=== PATIENT | male | born 1985 | race African-American/Black ===

== ENCOUNTER → 2016-11-16 | Outpatient (CLI) | payer MEDICAID | LOC: M OUTALCOH 08:06 | PROVIDERS: ATTEND Psychiatry & Neurology Psychiatry | DX: F11.20 Opioid dependence, uncomplicated (principal); F14.20 Cocaine dependence, uncomplicated ==

== ENCOUNTER 2016-12-02 09:00 | Outpatient (RCR) | payer SELFPAY | END 2016-12-04 | LOC: M OUTALCOH 09:00 | PROVIDERS: ATTEND Psychiatry & Neurology Psychiatry | DX: F11.20 Opioid dependence, uncomplicated (principal); F14.20 Cocaine dependence, uncomplicated ==

== ENCOUNTER → 2017-02-02 | Outpatient (CLI) | payer MEDICAID, OTHER | LOC: M OUTALCOH 12:05 | PROVIDERS: ATTEND Psychiatry & Neurology Psychiatry | DX: F11.20 Opioid dependence, uncomplicated (principal); F14.20 Cocaine dependence, uncomplicated ==

== ENCOUNTER 2017-04-01 12:49 | Inpatient (IN) | payer OTHER ==
[2017-04-01] MEDS ORDERED: HALOPERIDOL 5 MG/ML VIAL (J1630) As Ordered (13:49)
[2017-04-01] MEDS ORDERED: LORazepam 2 MG/ML VIAL (J2060) As Ordered (13:49)
[2017-04-01] MEDS ORDERED: diphenhydrAMINE INJ 50MG/ML VIAL (J1200) As Ordered (13:49)
[2017-04-01 14:58] LABS: ALBUMIN 4.5 GM/DL (3.2-5.2); ALBUMIN/GLOBULIN RATIO 1.13 (1.00-1.93); ALKALINE PHOSPHATASE 108 U/L (45-117); ALT/SGPT 60 U/L (12-78); ANION GAP 12 MEQ/L (8-16); AST/SGOT 31 U/L (7-37); BILIRUBIN,DIRECT 0.2 MG/DL (0.0-0.2); BILIRUBIN,TOTAL 0.8 MG/DL (0.2-1.0); BLOOD UREA NITROGEN 23 MG/DL (7-18); CALCIUM LEVEL 9.1 MG/DL (8.5-10.1); CARBON DIOXIDE LEVEL 22 MEQ/L (21-32); CHLORIDE LEVEL 105 MEQ/L (98-107); CREATININE FOR GFR 1.59 MG/DL (0.70-1.30); ETHYL ALCOHOL (ETHANOL) < 0.003 % (0.000-0.010); GLOMERULAR FILTRATION RATE > 60.0 (>60); GLUCOSE, FASTING 179 MG/DL (70-100); POTASSIUM SERUM 3.5 MEQ/L (3.5-5.1); SALICYLATE LEVEL < 1.7 MG/DL (5.0-30.0); SODIUM LEVEL 139 MEQ/L (136-145); TOTAL PROTEIN 8.5 GM/DL (6.4-8.2)
[2017-04-01 14:59] LABS: ACETAMINOPHEN LEVEL < 2.0 UG/ML (10.0-30.0)
[2017-04-01 15:18] LABS: HEMATOCRIT 47.9 % (42.0-52.0); HEMOGLOBIN 16.3 g/dl (14.0-18.0); MEAN CORPUSCULAR HEMOGLOBIN 29.8 pg (27.0-33.0); MEAN CORPUSCULAR VOLUME 87.6 fl (80.0-96.0); PLATELET COUNT, AUTOMATED 231 10^3/uL (150-450); RED BLOOD COUNT 5.47 10^6/uL (4.30-6.10); RED CELL DISTRIBUTION WIDTH 13.4 % (11.5-14.5); WHITE BLOOD COUNT 18.6 10^3/uL (4.0-10.0)
[2017-04-01] MEDS: LORazepam 2 MG TAB PO (15:18)
[2017-04-01] MEDS: diphenhydrAMINE 25 MG CAP PO (15:18)
[2017-04-01] MEDS: HALOPERIDOL 5 MG TAB PO (15:18)
[2017-04-01 15:44] LABS: AMPHETAMINES LEVEL URINE NEGATIVE (NEGATIVE); BARBITURATES URINE NEGATIVE (NEGATIVE); BENZODIAZEPINES URINE NEGATIVE (NEGATIVE); CANNABINOIDS URINE NEGATIVE (NEGATIVE); COCAINE METABOLITE URINE NEGATIVE (NEGATIVE); METHADONE URINE NEGATIVE (NEGATIVE); OPIATES URINE NEGATIVE (NEGATIVE); PHENCYCLIDINE URINE NEGATIVE (NEGATIVE)
[2017-04-01 16:12] LABS: KETONE, URINE AUTO RFX NEGATIVE (NEGATIVE); LEUKOCYTE ESTERASE UR AUTO RFX NEGATIVE (NEGATIVE); MUCUS, URINE RFX LARGE (NEGATIVE); NITRITE, URINE AUTO RFX NEGATIVE (NEGATIVE); RBC, URINE AUTO RFX 1 /HPF (0-3); SPECIFIC GRAVITY UR AUTO RFX 1.036 (1.002-1.035); SQUAM EPITHELIAL CELL UR AURFX 1 /HPF (0-6); WBC, URINE AUTO RFX 3 /HPF (0-3)
[2017-04-01 18:26] LABS: BASO # 0.1 10^3/uL (0.0-0.2); BASO % 0.5 % (0.0-1.0); EOS # 0.1 10^3/uL (0.0-0.50); EOS % 0.3 % (0.0-3.0); HEMATOCRIT 45.8 % (42.0-52.0); HEMOGLOBIN 15.5 g/dl (14.0-18.0); IMMATURE GRANULOCYTE # 0.1 10^3/uL (0-0); IMMATURE GRANULOCYTE % 0.3 % (0-0); LYMPH # 2.9 10^3/uL (1.5-6.5); LYMPH % 16.9 % (24.0-44.0); MEAN CORPUSCULAR HEMOGLOBIN 29.4 pg (27.0-33.0); MEAN CORPUSCULAR HGB CONC 33.8 g/dl (32.0-36.5); MEAN CORPUSCULAR VOLUME 86.9 fl (80.0-96.0); MONO % 11.6 % (0.0-5.0); NEUTROPHILS # 11.9 10^3/uL (1.8-7.7); NEUTROPHILS % 70.4 % (36.0-66.0); PLATELET COUNT, AUTOMATED 222 10^3/uL (150-450); RED BLOOD COUNT 5.27 10^6/uL (4.30-6.10); RED CELL DISTRIBUTION WIDTH 13.4 % (11.5-14.5)
[2017-04-01] MEDS: NS 1,000 ML IV (18:30)
[2017-04-01 18:38] LABS: C REACTIVE PROTEIN QUANTITATIV 0.43 MG/DL (0.00-0.30)
[2017-04-01 18:47] LABS: ERYTHROCYTE SEDIMENTATION RATE 4 mm/hr (0-15)
[2017-04-01] MEDS: **hydrALAZINE HCL** 25 MG TAB PO (21:15)
[2017-04-01] MEDS ORDERED: OLANZapine ORAL DISINTEGRATING TAB 5MG PO (22:30)
[2017-04-01] MEDS ORDERED: MOM 30ML SUSPENSION UDC PO (22:30)
[2017-04-01] MEDS ORDERED: MAALOX 30 ML SUSP *UDC PO (22:30)
[2017-04-01] MEDS ORDERED: traZODone 50 MG TAB PO (22:30)
[2017-04-01] MEDS ORDERED: ACETAMINOPHEN TAB 650MG DOSE (2X325MG) PO (22:30)
[2017-04-02] MEDS: **hydrALAZINE HCL** 25 MG TAB PO ×2 (06:00→14:00)
[2017-04-02] MEDS: cloNIDine 0.1 MG TAB PO (06:50)
[2017-04-02] MEDS: DIVALPROEX 250 MG TAB PO (08:46)
[2017-04-02] MEDS: HALOPERIDOL 10 MG TAB PO ×2 (08:46→21:00)
[2017-04-02] MEDS: amLODIPine 5 MG TAB PO (10:20)
[2017-04-02 11:28] LABS: HEMATOCRIT 41.7 % (42.0-52.0); HEMOGLOBIN 14.2 g/dl (14.0-18.0); MEAN CORPUSCULAR HEMOGLOBIN 29.7 pg (27.0-33.0); MEAN CORPUSCULAR HGB CONC 34.1 g/dl (32.0-36.5); MEAN CORPUSCULAR VOLUME 87.2 fl (80.0-96.0); PLATELET COUNT, AUTOMATED 188 10^3/uL (150-450); RED BLOOD COUNT 4.78 10^6/uL (4.30-6.10); RED CELL DISTRIBUTION WIDTH 13.4 % (11.5-14.5); WHITE BLOOD COUNT 8.7 10^3/uL (4.0-10.0)
[2017-04-02 11:53] LABS: AMMONIA 18 uMOL/L (<32)
[2017-04-02 11:57] LABS: ANION GAP 7 MEQ/L (8-16); BLOOD UREA NITROGEN 13 MG/DL (7-18); CALCIUM LEVEL 8.7 MG/DL (8.5-10.1); CARBON DIOXIDE LEVEL 25 MEQ/L (21-32); CHLORIDE LEVEL 108 MEQ/L (98-107); CREATININE FOR GFR 1.02 MG/DL (0.70-1.30); GLOMERULAR FILTRATION RATE > 60.0 (>60); GLUCOSE, FASTING 88 MG/DL (70-100); POTASSIUM SERUM 3.7 MEQ/L (3.5-5.1); SODIUM LEVEL 140 MEQ/L (136-145)
[2017-04-02] MEDS: DIVALPROEX 500 MG TAB PO (22:17)
[2017-04-03] MEDS: HALOPERIDOL 10 MG TAB PO ×2 (09:00→21:00)
[2017-04-03] MEDS: DIVALPROEX 250 MG TAB PO ×3 (09:40→21:05)
[2017-04-03] MEDS: amLODIPine 5 MG TAB PO (09:40)
[2017-04-03] MEDS: LORazepam 1 MG TAB PO (19:59)
[2017-04-04] MEDS: HALOPERIDOL 10 MG TAB PO (08:29)
[2017-04-04] MEDS: DIVALPROEX 250 MG TAB PO (08:32)
[2017-04-04] MEDS: amLODIPine 5 MG TAB PO (08:32)
[2017-04-04] MEDS: LORazepam 1 MG TAB PO (08:32)
[2017-04-04 09:59] LABS: VITAMIN B12 LEVEL 283 PG/ML (247-911)
== END 2017-04-04 14:40 | disposition home or self-care (01) | DRG 776 ==
LOC: M ED 12:49 → M ED INP 22:18 → M PSY 23:05
DX: F15.159 Other stimulant abuse with stimulant-induced psychotic disorder, unspecified (principal); I10 Essential (primary) hypertension; F17.210 Nicotine dependence, cigarettes, uncomplicated; D72.829 Elevated white blood cell count, unspecified; F60.89 Other specific personality disorders